=== PATIENT | female | born 1950 | race Caucasian/White ===

== ENCOUNTER 2020-03-19 15:59 | Emergency (ER) | payer MEDICARE, OTHER ==
[~2020-03-19] VITALS: Ht 154.9 cm; Wt 86.2 kg
[2020-03-19 16:05] VITALS: BP 173/100
[2020-03-19] MEDS ORDERED: ZOLOFT50 M1 PO (16:12)
[2020-03-19] MEDS ORDERED: LOSARTAN POTAS100 MG PO (16:12)
[2020-03-19] MEDS ORDERED: CHILDREN'S ASPI81 M1 PO (16:13)
[2020-03-19] MEDS ORDERED: ATORVASTATIN CA80 MG PO (16:13)
[2020-03-19] MEDS ORDERED: GINKGO BILOBA120 M1 PO (16:13)
[2020-03-19] MEDS ORDERED: FISH OIL 1,0001 EAC9 PO (16:13)
[2020-03-19] MEDS ORDERED: DESYREL150 MG PO (16:14)
[2020-03-19] MEDS ORDERED: PREDNISONE 20 M20 M1 PO (16:35)
[2020-03-19] MEDS ORDERED: KEFLEX500 M1 PO (16:35)
[2020-03-19] MEDS ORDERED: ACYCLOVIR 800800 MG PO (16:35)
== END 2020-03-19 16:41 | disposition home or self-care (01) ==
LOC: M.ERS 15:59
DX: B02.9 Zoster without complications (principal); L53.9 Erythematous condition, unspecified; I10 Essential (primary) hypertension; Z88.5 Allergy status to narcotic agent; Z90.49 Acquired absence of other specified parts of digestive tract